=== PATIENT | male | born 1950 | race Caucasian/White ===

== ENCOUNTER 2018-11-11 08:16 | Inpatient (IN) | payer OTHER ==
[~2018-11-11] VITALS: Ht 185.4 cm; Wt 101.4 kg
[~2018-11-11 08:16] MED LIST: BACITRACIN 50,000 UNIT ONE; BUPIVACAINE/PF-EPI 0.5% 1:200K ONE; MINERAL OIL 10 ML VIAL MC ONE; THROMBIN 5,000 UNIT VIAL TP ONE
[2018-11-11 08:41] VITALS: BP 122/75
[2018-11-11] MEDS ORDERED: LACTATED RINGERS 1,000 ML IV SCH (08:44)
[2018-11-11] MEDS ORDERED: TIZA4CAP PO (08:49)
[2018-11-11] MEDS ORDERED: OXYC-302 PO (08:49)
[2018-11-11] MEDS ORDERED: GABA300C10 PO (08:49)
[2018-11-11] MEDS ORDERED: PLEASE ENTER HEIGHT AND WEIGHT MC SCH (09:00)
[2018-11-11] MEDS ORDERED: ACETAMINOPHEN 500 MG TABLET PO ONE (09:00)
[2018-11-11] MEDS ORDERED: GABAPENTIN 300 MG CAPSULE PO ONE (09:00)
[2018-11-11] MEDS ORDERED: MIDAZOLAM 1 MG/ML, 2ML ONE (11:30)
[2018-11-11] MEDS ORDERED: FENTANYL PF 250 MCG/5ML ONE ×2 (11:30→14:06)
[2018-11-11] MEDS ORDERED: ROCURONIUM 10MG/ML,5ML ONE (11:34)
[2018-11-11] MEDS ORDERED: NEOSTIGMINE 1 MG/ML, 10ML ONE (11:34)
[2018-11-11] MEDS ORDERED: CEFAZOLIN 1,000 MG ONE (11:34)
[2018-11-11] MEDS ORDERED: DEXAMETHASONE 4 MG/ML, 1ML ONE (11:34)
[2018-11-11] MEDS ORDERED: PROPOFOL 10 MG/ML, 20ML ONE (11:34)
[2018-11-11] MEDS ORDERED: GLYCOPYRROLATE 0.2MG/1ML, 5ML ONE (11:34)
[2018-11-11] MEDS ORDERED: PHENYLEPHRINE 10 MG/ML ONE (13:27)
[2018-11-11] MEDS ORDERED: hydrALAzine 20 MG/ML, 1ML IV PRN (13:30)
[2018-11-11] MEDS ORDERED: ONDANSETRON ODT 8 MG PO PRN (13:30)
[2018-11-11] MEDS ORDERED: ONDANSETRON 2MG/ML, 2ML IV PRN ×2 (13:30→18:30)
[2018-11-11] MEDS ORDERED: PROMETHAZINE 25 MG SUPP PR PRN (13:30)
[2018-11-11] MEDS ORDERED: HYDROmorphone 2 MG/ML, 1ML IVPush PRN (13:30)
[2018-11-11] MEDS ORDERED: MEPERIDINE/PF 25MG/0.5ML IVPush PRN (13:30)
[2018-11-11] MEDS ORDERED: PROMETHAZINE 25 MG/ML, 1ML IV PRN (13:30)
[2018-11-11] MEDS ORDERED: MORPHINE SULFATE 4 MG/ML, 1ML IVPush PRN (13:30)
[2018-11-11] MEDS ORDERED: OXYcodone 5 MG/5 ML ORAL.SOL UDC PO PRN (13:30)
[2018-11-11] MEDS ORDERED: LABETALOL 5MG/ML, 20ML IV PRN ×2 (13:30→18:30)
[2018-11-11] MEDS ORDERED: PROMETHAZINE 12.5 MG SUPP PR PRN (13:30)
[2018-11-11] MEDS ORDERED: PROMETHAZINE 25 MG/ML, 1ML IM PRN ×3 (13:30→18:30)
[2018-11-11] MEDS ORDERED: FENTANYL PF 100 MCG/2ML ONE ×3 (14:51→16:35)
[2018-11-11] MEDS ORDERED: HYDROmorphone 1 MG/ML, 1ML ONE (16:35)
[2018-11-11] MEDS ORDERED: OXYcodone 5 MG/5 ML ORAL.SOL UDC ONE (16:35)
[2018-11-11] MEDS: FENTANYL PF 100 MCG/2ML IV PRN ×2 (16:38→16:56)
[2018-11-11] MEDS ORDERED: morphine SULFATE 10 MG/ML, 1ML IV PRN (18:30)
[2018-11-11] MEDS ORDERED: DIPHENHYDRAMINE 25 MG CAPSULE PO PRN (18:30)
[2018-11-11] MEDS ORDERED: TIZANIDINE 4MG TABLET PO PRN (18:30)
[2018-11-11] MEDS ORDERED: DIPHENHYDRAMINE 50 MG/ML, 1ML IM PRN (18:30)
[2018-11-11] MEDS: NS + 20MEQ KCL 1,000 ML IV SCH ×2 (19:00→22:25)
[2018-11-11 19:02] VITALS: BP 128/70
[2018-11-11] MEDS: OXYcodone/APAP 5/325MG TABLET PO PRN (20:48)
[2018-11-11] MEDS: CEFAZOLIN PMX 1GM/50ML 50 ML IVPB SCH (22:25)
[2018-11-12 00:13] VITALS: BP 152/84
[2018-11-12] MEDS: OXYcodone/APAP 5/325MG TABLET PO PRN ×3 (01:28→12:12)
[2018-11-12] MEDS: CEFAZOLIN PMX 1GM/50ML 50 ML IVPB SCH (06:15)
[2018-11-12 07:00] VITALS: BP 127/74
[2018-11-12] MEDS ORDERED: GABAPENTIN 300 MG CAPSULE PO SCH (09:00)
== END 2018-11-12 12:45 | disposition home or self-care (01) | DRG 472 ==
LOC: ORIP 08:16 → 4NOR 18:05 → DCLOUNGE 11-12 12:38
PROVIDERS: ADMIT Neurological Surgery; ATTEND Neurological Surgery
PROC: 0RB30ZZ Excision of Cervical Vertebral Disc, Open Approach (ICD-10-PCS; 2018-11-11)
PROC: 4A11X4G Monitoring of Peripheral Nervous Electrical Activity, Intraoperative, External Approach (ICD-10-PCS; 2018-11-11)
PROC: 0RG20A0 Fusion of 2 or more Cervical Vertebral Joints with Interbody Fusion Device, Anterior Approach, Anterior Column, Open Approach (ICD-10-PCS; principal; 2018-11-11 11:30)
DX: M48.02 Spinal stenosis, cervical region (principal); G99.2 Myelopathy in diseases classified elsewhere; C91.10 Chronic lymphocytic leukemia of B-cell type not having achieved remission; M54.12 Radiculopathy, cervical region; Z83.3 Family history of diabetes mellitus; Z98.42 Cataract extraction status, left eye; Z98.41 Cataract extraction status, right eye
CPT/HCPCS: 72040; J3490; C1713; C1776; G0378; J0690; J1100; J1170; J2250; J2704; J2710; J3010; J3480; C1762; J2370; J7120